=== PATIENT | female | born 2000 | race African-American/Black ===

== ENCOUNTER 2025-03-18 22:57 | Emergency (ER) | payer OTHER, SELFPAY ==
[2025-03-18 23:33] VITALS: BP 128/85
[2025-03-19 00:13] LABS: Hematocrit 42.1 % (37.0-47.0); Hemoglobin 14.1 g/dL (12.0-16.0); Mean Corp Hgb Conc. 33.5 g/dL (33.0-37.0); Mean Corpuscular Volume 85.4 fL (81.0-99.0); Nucleated Red Blood Cells % 0 %; Platelet Count 280 10^3/uL (130-400); Red Cell Dist. Width 12.5 % (11.5-14.5)
[2025-03-19 00:20] LABS: HCG, Serum Qualitative Screen Negative
[2025-03-19 00:23] LABS: ALT (SGPT) 20 U/L (0-35); AST (SGOT) 25 U/L (14-36); Albumin 4.3 g/dl (3.5-5.0); Alkaline Phosphatase 54 U/L (38-126); Blood Urea Nitrogen 7 mg/dl (7-17); Calcium 9.0 mg/dl (8.4-10.2); Carbon Dioxide 28 mmol/L (22-30); Chloride 104 mmol/L (98-107); Glucose 90 mg/dl (70-99); Potassium 4.0 mmol/L (3.5-5.1); Sodium 136 mmol/L (135-145); Total Protein 7.9 g/dl (6.3-8.2); eGFR > 60.00
[2025-03-19 00:33] LABS: COVID-19 Antigen Negative (Negative)
[2025-03-19 00:36] LABS: Troponin I < 0.012 ng/ml
[2025-03-19 01:12] VITALS: BP 125/77
[2025-03-19 03:38] VITALS: BP 132/89
--- NOTE | 2025-03-19 03:38 | ED.GENMED ---
History of Present Illness
General
Chief Complaint: Fainting/Passed Out
Source: patient and family (mom states that she heard the patient fall and quickly ran to her. She saw no seizure activity)
Exam Limitations: none
Time Seen by Provider: 03/19/25 00:29
History of Present Illness
History of Present Illness:
Note:
CHIEF COMPLAINT(S)
Sudden onset of severe headache followed by loss of consciousness.
HISTORY OF PRESENT ILLNESS
The patient is a 24-year-old female with a history of asthma who presented with a sudden, sharp pain in her head while filling a water bottle. This was accompanied by a burning R sided BONNER, and the patient felt faint and subsequently lost
consciousness. When she regained consciousness, she was on the floor and was confused about the events that had transpired. Her mom states that she noted she was not convulsing during the episode.
The patient described the headache as a compressive sensation, resembling the worst migraine she has ever experienced, which prompted the syncopal event. After regaining consciousness, she reported no confusion and admitted to urinary incontinence
during the episode. The headache subsided after the event, but some residual discomfort remained at the top of her head. Presently, she feels mostly normal but slightly disoriented from the incident.
The patient has no significant medical history apart from asthma and mentions taking Zoloft for approximately three months, with prior experience on the medication. She denies any palpitations or chest pain during the event.
PAST MEDICAL AND SURGICAL HISTORY
Asthma.
MEDICATIONS
Zoloft (sertraline) for approximately three months, previously used.
REVIEW OF SYSTEMS
- Neurologic: Sudden severe headache (compressive in nature), loss of consciousness, confusion post-event.
- Urinary: Urinary incontinence noted during episode.
- Musculoskeletal: Pain at the top of the head and in the shoulder and knee after the fall.
PHYSICAL EXAM
General: Alert, no acute distress.
Skin: Warm, dry.
Head: Normocephalic, atraumatic.
Neck: Supple, trachea midline, no neck pain.
Eye, Ears, Nose, and Throat: Oral mucosa moist.
Cardiovascular: Normal peripheral perfusion, No edema.
Respiratory: Respirations are non-labored.
Gastrointestinal: Abdomen nondistended
Back: Normal range of motion, Normal alignment.
Musculoskeletal: Normal range of motion, normal strength, some discomfort noted in head, shoulder, and knee.
Neurological: Alert and oriented to person, place, time, and situation, No focal neurological deficit observed.
Psychiatric: Cooperative, appropriate mood & affect.
PLAN
1. The patient will undergo a CT scan of the head to rule out intracranial pathology like an aneurysm.
2. Monitor heart rhythm and further evaluate for potential arrhythmia.
3. Education on vasovagal syncope and what to expect.
4. Follow-up for the reassessment of the recent episode and consult if recurrent symptoms appear.
DIFFERENTIAL DIAGNOSIS
The Differential Diagnosis includes, in no particular order and is not limited to:
1. Vasovagal syncope.
2. Migraine headache.
3. Subarachnoid hemorrhage.
4. Seizure.
5. Orthostatic hypotension.
6. Cardiac arrhythmia.
7. Intracranial hemorrhage.
8. Aneurysm.
9. Electrolyte imbalance.
10. Panic attack.
EKG
My independent EKG interpretation is:
- Time of EKG not specified
- Rhythm: Not specified
- Heart rate: 83 beats per minute
- Notable intervals: Normal
- [place]: Normal
- Abnormalities observed: No acute ischemic changes
Disposition:
SUMMARY OF ENCOUNTER
The patient is a 24-year-old female presenting with a syncopal episode following a sudden severe headache. The headache resolved quickly, and there was no witnessed seizure activity or postictal phase. The patient reported no current symptoms during
the encounter. Management included conducting an EKG, CT, and CTA to rule out intracranial hemorrhage or large vessel occlusion, all of which showed no significant findings. Given the rapid resolution of symptoms and the lack of ongoing issues, the
cause is suspected to be vasovagal syncope related to the headache. The patient was stable and considered suitable for outpatient management and follow-up.
PLAN
1. Monitor the patients condition with close follow-up.
2. Educate the patient about vasovagal syncope and its management.
3. Advise the patient to return if recurrent symptoms or new concerns appear.
INDEPENDENT REVIEW OF LABS AND INTERPRETATION OF TESTS
- My independent review of the EKG shows normal findings with a heart rate of 83 beats per minute.
- My independent CT and CTA head interpretation indicates no intracranial hemorrhage, large vessel occlusion, or critical stenosis.
- My independent review of the CBC is normal.
- My independent review of the chest X-ray is normal.
PATIENT EDUCATION AND COUNSELING
The patient was educated about vasovagal syncope, including potential triggers and management strategies. Emphasis was placed on the importance of follow-up care and recognizing symptoms that warrant a return visit to the emergency department.
MEDICAL DECISION MAKING
-Complexity of Data Reviewed: Chronic conditions affecting care [Asthma] The Differential Diagnosis includes (1) Vasovagal syncope, (2) Migraine headache, (3) Subarachnoid hemorrhage, (4) Seizure, (5) Orthostatic hypotension, (6) Cardiac arrhythmia,
(7) Intracranial hemorrhage, (8) Aneurysm, (9) Electrolyte imbalance, (10) Panic attack.
-Data:
Category 1
- My independent interpretation of EKG indicates normal findings.
- My independent interpretation of CT and CTA shows no significant abnormalities.
-Risk:
Consideration of Admission/Observation: Escalation of care including admission/observation was considered given the complexity and risk of the patients presenting complaint, exam findings, and/or their underlying comorbidities. However, ultimately I
feel the patient is safe for outpatient management with close follow up. Reasoning: Work-up reassuring, does not reveal any acute life/organ threatening processes, patients symptoms well controlled upon reevaluation, reexamination is reassuring,
vitals are stable, patient agreeable with discharge, reliable for follow-up.
DIAGNOSIS
- Vasovagal Syncope (ICD-10: R55)
- Headache (ICD-10: R51.9)
Past History
Past History
ED Past Medical History: Asthma and Other
ED Past Surgical History: None
Social History
Tobacco: Non-smoker
Alcohol: None
Drug: None
Personal: Single
Living: with family
Employment: Student
Phy Exam
Physical Exam
Physical Exam:
.
Course
Orders/Labs/Results
Orders:
Orders
03/18/25 23:40
Electrocardiogram (*1) Urgent
Reason for Study: Other
Other Reason for Exam: Respiratory Distress
Cardiac Monitoring- Treatment ONCE
EKG- Treatment ONCE
IV Insert/Care/Rem.- Treatment PRN
O2 Therapy [RESP] Urgent
Titrate/Wean O2 to maintain O2 sat greater than (%): 93
Special Instructions: TO MAINTAIN CONTINUOUS O2 SATS >/= 93%
Pulse Ox/cont/shift [RESP] Urgent
Quantity: 1
Special Instructions: continuous pulse ox
03/18/25 23:48
Test Result ONCE
03/18/25 23:50
COVID-19 Antigen Urgent
Source: Nasal Swab
Complete Blood Count/With Diff Urgent
Comprehensive Metabolic Panel Urgent
HCG, Serum Qualitative Screen Urgent
NT-proBNP Urgent
Troponin I Urgent
Influenza A+B Rapid Molecular Urgent
ASTRID Source: Nasal Swab
Specimen Description:
03/19/25 00:05
CR Chest - 2 Views Urgent
Reason For Exam: respiratory distress
03/19/25 00:51
CT Head & Neck Angio W/wo IV Urgent
Comment:
Reason For Exam: severe BONNER, syncope
Abnormal Lab Results
03/18/25
23:50
Absolute Monos (auto) 0.8 H 10^3/uL
(0.1-0.6)
03/18/25 23:50
03/18/25 23:50
Vital Signs
Initial and Last Documented VS:
Initial Vital Signs
Temp Pulse Resp BP Pulse Ox
99 F 95 20 128/85 100
03/18/25 23:33 03/18/25 23:33 03/18/25 23:33 03/18/25 23:33 03/18/25 23:33
Last Documented Vital Signs
Temp Pulse Resp BP Pulse Ox
99 F 79 18 132/89 99
03/18/25 23:33 03/19/25 03:38 03/19/25 03:38 03/19/25 03:38 03/19/25 03:39
*Pulse Oximetry
SaO2: 99
Oxygen Mode of Delivery: Room air
Patient hypoxic: no
*Critical Care Note
Total Time (30-74mins, 75-104mins- exclusive of procedures): Not Applicable
ED Attending Note
-
Portions of this chart may have been created with voice recognition software.� Occasional wrong word or��sound alike� substitutions may have occurred due to the inherent limitations of voice recognition software.
Discharge Plan
Departure
Patient Disposition: Home (Routine Discharge)
Date of Disposition: 03/19/25
Time of Disposition: 03:38
Patient with high blood pressure during this ER visit?: No
Discharge Problem:
Syncope
Instructions: Syncope (Fainting) (DC)
Prescriptions:
No Action
Albuterol Sulfate Hfa
2 puff inhalation Q4HPRN PRN (Reason: SOB )
fluticasone propion-salmeterol [Advair Diskus] 1 EACH blister with device
1 ea IH BID
levonorgestrel-ethinyl estrad [Sronyx] 1 EACH tablet
1 tab PO DAILY
fluticasone propionate 1 SPRAY spray,suspension
1 spray intranasal DAILY
FLOVENT 110mcg:
1 puff inhalation BID
prednisone 50 MG tablet
50 mg PO DAILY Qty: 5 0RF
albuterol sulfate 2.5 MG/3 ML solution for nebulization
2.5 mg inhalation R Q4HPRN PRN (Reason: asthma, wheezing) Qty: 30 0RF
epinephrine [EpiPen] 0.3 MG/0.3/SYRINGE auto-injector
0.3 mg IM PRN PRN (Reason: severe allergic reaction) Qty: 2 0RF
prednisone 50 MG tablet
50 mg PO DAILY Qty: 4 0RF
Referrals:
NONE,* [Family Provider, Internal Medicine]
Activity Restrictions/Additional Instructions:
Please see your doctor in the next 1 week for follow-up and reevaluation. Return immediately for worsening symptoms, recurrent symptoms, seizure activity, weakness of any kind, or any other concerns.
Interventions
Interventions:
*General Assessment Last Done: 03/18/25 23:33
*Neglect/Abuse Screening Last Done: 03/18/25 23:33
*ED COVID-19 Vaccine History Last Done: 03/18/25 23:33
*ED Influenza Vaccine History Last Done: 03/18/25 23:33
[facility] Fall Risk Assessment Tool Last Done: 03/19/25 03:39
*Risk Screen - Suicide (C-SSRS) Last Done: 03/19/25 03:43
*Nursing Disposition Last Done: 03/19/25 03:43
ED- Cardiac Assessment Last Done: 03/19/25 02:00
ED- Neurological Assessment Last Done: 03/19/25 02:00
Discharge Date and Time
Print Language: NICARAGU[place]
== END 2025-03-19 03:44 | disposition home or self-care (01) ==
LOC: EMR 22:57
PROVIDERS: Emergency Medicine; EMERGENCY PHYSICIAN Emergency Medicine
DX: R55 Syncope and collapse (principal); R51.9 Headache, unspecified; Z11.52 Encounter for screening for COVID-19; J45.909 Unspecified asthma, uncomplicated
CPT/HCPCS: 99285; 70496; 70498; 71046; 80053; 83880; 84484; 84703; 85025; 87502; 87811; 93005; Q9967